=== PATIENT | female | born 1950 | race Caucasian/White ===

== ENCOUNTER 2017-06-07 04:04 | Emergency (ER) | payer BC ==
[~2017-06-07] VITALS: Wt 81.6 kg
[~2017-06-07 04:04] MED LIST: ANAPROX DS550 MG PO; BP MEDICATION; DITROPAN XL10 MG PO; DITROPAN XL5 MG PO; EXFORGE 5 MG PO; EXFORGE PO; FLEXERIL5 MG PO; MEDROL DOSEPAK4 MG PO; MOBIC7.5 MG PO; NORFLEX100 MG PO; PERCOCET 325 MG1 TA7 PO; PREDNICOT20 MG PO; TRAMADOL HCL50 MG PO; VESICARE5 MG PO; VICODIN 5/500 505 MG PO
[2017-06-07 04:24] LABS: BILIRUBIN NEGATIVE (NEGATIVE); BLOOD 2+ (NEGATIVE); CLARITY SL CLOUDY (CLEAR); COLOR YELLOW (YELLOW); GLUCOSE NEGATIVE (NEGATIVE); KETONE NEGATIVE (NEGATIVE); LEUKO ESTERASE 1+ (NEGATIVE); NITRITE NEGATIVE (NEGATIVE); PH 6.5 (5.0-9.0); UROBILINOGEN 0.2 E.U./dl (0.2-1.0)
[2017-06-07 04:42] LABS: BACTERIA 4+; RBC 21-30 rbc/hpf (0-2); WBC 41-50 wbc/hpf (0-5)
[2017-06-07 04:47] LABS: HEMOGLOBIN 11.8 g/dl (12.0-16.0); MEAN CELL VOLUME 92.6 fl (81.0-99.0); MEAN CORPUSCULAR HGB 31.2 pg (27.0-31.0); MEAN CORPUSCULAR HGB CONC 33.7 g/dl (33.0-37.0); MEAN PLATELET VOLUME 9.1 fl (9.6-12.3); PLATELET COUNT AUTOMATED 214 10*3/uL (130-400); RED BLOOD COUNT 3.78 10*6/uL (4.10-5.10); RED CELL DISTRI WIDTH 12.8 % (0-14.5); WHITE BLOOD COUNT 9.6 10*3/uL (4.8-10.8)
[2017-06-07 05:07] LABS: PLATELET SUFFICIENCY NORMAL (NORMAL); TOTAL CELLS COUNTED 100 #CELLS
[2017-06-07 05:08] LABS: ALBUMIN 3.6 gm/dl (3.1-4.5); ALKALINE PHOSPHATASE 91 U/L (45-117); BUN 18 mg/dl (7-24); CHLORIDE 106 mmol/L (98-107); CREATININE 0.91 mg/dL (0.55-1.02); LIPASE 122 U/L (73-393); POTASSIUM 3.8 mmol/L (3.5-5.1); SGOT/AST 27 IU/L (3-35); SGPT/ALT 35 U/L (12-78); SODIUM 137 mmol/L (136-145); TOTAL PROTEIN 7.1 gm/dL (6.4-8.2)
[2017-06-07] MEDS ORDERED: FLOMAX0.4 MG PO (06:44)
[2017-06-07] MEDS ORDERED: AMINOPHYLLIN200 MG PO (06:44)
[2017-06-07] MEDS ORDERED: ZOFRAN ODT4 MG SL (06:44)
[2017-06-07] MEDS ORDERED: NORCO 5-325 TA1 EACH PO (06:44)
== END 2017-06-07 06:51 | disposition home or self-care (01) ==
LOC: ED 04:04
PROVIDERS: Emergency Medicine Emergency Medical Services
DX: N20.1 Calculus of ureter (principal); Z98.51 Tubal ligation status; Z79.899 Other long term (current) drug therapy

== ENCOUNTER → 2017-07-14 | Outpatient (CLI) | payer BC ==
[~2017-07-14] MED LIST changes: +AMINOPHYLLIN200 MG PO; +FLOMAX0.4 MG PO; +NORCO 5-325 TA1 EACH PO; +ZOFRAN ODT4 MG SL
== END | disposition home or self-care (01) ==
LOC: US 13:02
DX: N20.0 Calculus of kidney (principal)

== ENCOUNTER → 2017-09-08 | Outpatient (CLI) | payer BC ==
[2017-09-08 14:50] LABS: BASO # 0.1 10*3/uL (0.0-0.1); BASO % 1.1 % (0.0-1.0); EOS # 0.2 10*3/uL (0.0-0.4); EOS % 3.8 % (1.0-4.0); HEMATOCRIT 38.1 % (37.0-47.0); HEMOGLOBIN 12.7 g/dl (12.0-16.0); LYMPH # 1.1 10*3/uL (1.3-4.4); LYMPH % 20.1 % (27.0-41.0); MEAN CELL VOLUME 92.5 fl (81.0-99.0); MEAN CORPUSCULAR HGB 30.8 pg (27.0-31.0); MEAN CORPUSCULAR HGB CONC 33.3 g/dl (33.0-37.0); MEAN PLATELET VOLUME 9.5 fl (9.6-12.3); MONO # 0.4 10*3/uL (0.1-1.0); MONO % 7.3 % (3.0-9.0); NEUT # 3.7 10*3/uL (2.3-7.9); NEUT % 67.3 % (47.0-73.0); PLATELET COUNT AUTOMATED 239 10*3/uL (130-400); RED BLOOD COUNT 4.12 10*6/uL (4.10-5.10); RED CELL DISTRI WIDTH 13.3 % (0-14.5); WHITE BLOOD COUNT 5.5 10*3/uL (4.8-10.8)
[2017-09-08 15:02] LABS: ACT PARTIAL THROMBO TIME 23.5 SECONDS (20.8-31.5)
[2017-09-08 15:22] LABS: BILIRUBIN 1+ (NEGATIVE); BLOOD NEGATIVE (NEGATIVE); CLARITY SL CLOUDY (CLEAR); COLOR YELLOW (YELLOW); GLUCOSE NEGATIVE (NEGATIVE); KETONE NEGATIVE (NEGATIVE); LEUKO ESTERASE TRACE (NEGATIVE); NITRITE POSITIVE (NEGATIVE); PH 5.5 (5.0-9.0); SPECIFIC GRAVITY >= 1.030 (1.005-1.030); UROBILINOGEN 0.2 E.U./dl (0.2-1.0)
[2017-09-08 15:24] LABS: ALBUMIN 3.9 gm/dl (3.1-4.5); BUN 19 mg/dl (7-24); CHLORIDE 108 mmol/L (98-107); SGOT/AST 25 IU/L (3-35); SGPT/ALT 39 U/L (12-78); SODIUM 141 mmol/L (136-145)
[2017-09-08 15:26] LABS: ALKALINE PHOSPHATASE 101 U/L (45-117); CREATININE 0.86 mg/dL (0.55-1.02); TOTAL PROTEIN 7.5 gm/dL (6.4-8.2)
[2017-09-08 16:00] LABS: BACTERIA 1+; RBC 0-2 rbc/hpf (0-2); WBC 16-20 wbc/hpf (0-5)
== END | disposition home or self-care (01) ==
LOC: LAB 13:52
PROVIDERS: Orthopaedic Surgery
DX: I10 Essential (primary) hypertension (principal); Z79.899 Other long term (current) drug therapy

== ENCOUNTER 2019-04-10 09:57 | Emergency (ER) | payer OTHER ==
[~2019-04-10] VITALS: Ht 167.6 cm; Wt 92.1 kg
[2019-04-10 10:34] LABS: HEMATOCRIT 43.5 % (37.0-47.0); HEMOGLOBIN 14.2 g/dl (12.0-16.0); MEAN CELL VOLUME 96.2 fl (81.0-99.0); MEAN CORPUSCULAR HGB 31.4 pg (27.0-31.0); MEAN CORPUSCULAR HGB CONC 32.6 g/dl (33.0-37.0); MEAN PLATELET VOLUME 9.2 fl (9.6-12.3); PLATELET COUNT AUTOMATED 167 10*3/uL (130-400); RED BLOOD COUNT 4.52 10*6/uL (4.10-5.10); RED CELL DISTRI WIDTH 12.7 % (0-14.5); WHITE BLOOD COUNT 4.5 10*3/uL (4.8-10.8)
[2019-04-10 10:49] LABS: ALBUMIN 3.9 gm/dl (3.1-4.5); CREATININE 1.49 mg/dL (0.55-1.02); POTASSIUM 3.8 mmol/L (3.5-5.1); TOTAL PROTEIN 8.3 gm/dL (6.4-8.2)
[2019-04-10 10:49] LABS: BILIRUBIN NEGATIVE (NEGATIVE); BLOOD 1+ (NEGATIVE); CLARITY SL CLOUDY (CLEAR); COLOR YELLOW (YELLOW); GLUCOSE NEGATIVE (NEGATIVE); KETONE NEGATIVE (NEGATIVE); LEUKO ESTERASE TRACE (NEGATIVE); NITRITE NEGATIVE (NEGATIVE); UROBILINOGEN 0.2 E.U./dl (0.2-1.0)
[2019-04-10 10:53] LABS: PLATELET SUFFICIENCY NORMAL (NORMAL); TOTAL CELLS COUNTED 100 #CELLS
[2019-04-10 10:55] LABS: BACTERIA 2+; WBC 41-50 wbc/hpf (0-5)
[2019-04-10] MEDS ORDERED: ZOFRAN4 MG PO (13:30)
[2019-04-10] MEDS ORDERED: NORCO 5-325 TA1 EACH PO (13:30)
[2019-04-10] MEDS ORDERED: FLOMAX0.4 MG PO (13:30)
[2019-04-10] MEDS ORDERED: CEFUROXIME AXE500 MG PO (13:31)
== END 2019-04-10 13:45 | disposition home or self-care (01) ==
LOC: ED 09:57
PROVIDERS: Nurse Practitioner Family
DX: N20.1 Calculus of ureter (principal); N39.0 Urinary tract infection, site not specified; I10 Essential (primary) hypertension; Z87.442 Personal history of urinary calculi; Z79.2 Long term (current) use of antibiotics; Z79.899 Other long term (current) drug therapy

== ENCOUNTER → 2020-01-31 | Outpatient (CLI) | payer OTHER ==
[~2020-01-31] MED LIST changes: +CEFUROXIME AXE500 MG PO; +ZOFRAN4 MG PO
== END | disposition home or self-care (01) ==
LOC: RAD 13:30
PROVIDERS: ATTEND Nurse Practitioner Primary Care
DX: Z13.820 Encounter for screening for osteoporosis (principal); Z78.0 Asymptomatic menopausal state

== ENCOUNTER → 2021-08-13 | Outpatient (CLI) | payer OTHER ==
[~2021-08-13] MED LIST changes: +CRANBERRY300 MG PO; +ONE DAILY WOME1 EACH PO; +ZYRTEC10 M3 PO
== END | disposition home or self-care (01) ==
LOC: ORTHO 00:27
PROVIDERS: ATTEND Orthopaedic Surgery
DX: M19.041 Primary osteoarthritis, right hand (principal); M85.841 Other specified disorders of bone density and structure, right hand; M85.641 Other cyst of bone, right hand

== ENCOUNTER → 2021-10-02 | Day surgery (SDC) | payer OTHER ==
[2021-10-01 13:56] LABS: BUN 12 mg/dl (7-24); CHLORIDE 109 mmol/L (98-107); CREATININE 0.89 mg/dL (0.55-1.02); POTASSIUM 3.9 mmol/L (3.5-5.1); SODIUM 138 mmol/L (136-145)
[~2021-10-02] VITALS: Ht 167.6 cm; Wt 90.7 kg
[2021-10-02 07:23] VITALS: BP 168/76
[2021-10-02 07:51] VITALS: BP 130/75
[2021-10-02 08:06] VITALS: BP 129/73
[2021-10-02 08:21] VITALS: BP 148/78
== END | disposition home or self-care (01) ==
LOC: SDC 09-28 12:30 → LAB 07:30
PROVIDERS: ATTEND Orthopaedic Surgery
DX: G56.03 Carpal tunnel syndrome, bilateral upper limbs (principal); I10 Essential (primary) hypertension; F41.9 Anxiety disorder, unspecified; Z96.641 Presence of right artificial hip joint; Z90.710 Acquired absence of both cervix and uterus; Z79.899 Other long term (current) drug therapy

== ENCOUNTER → 2022-02-13 | Outpatient (CLI) | payer OTHER | END | disposition home or self-care (01) | LOC: MAMMO 10:51 | PROVIDERS: ATTEND Internal Medicine | DX: Z12.31 Encounter for screening mammogram for malignant neoplasm of breast (principal) ==

== ENCOUNTER → 2022-03-14 | Day surgery (SDC) | payer OTHER ==
[~2022-03-14] VITALS: Ht 167.6 cm; Wt 90.7 kg
[~2022-03-14] MED LIST changes: +VITAMIN C500 M4 PO; +VITAMIN D350 MCG PO
[2022-03-14 06:57] VITALS: BP 140/65
[2022-03-14 07:48] VITALS: BP 141/63
[2022-03-14 08:03] VITALS: BP 141/63
[2022-03-14 08:16] VITALS: BP 141/63; BP 159/84
== END | disposition home or self-care (01) ==
LOC: SDC 02-25 08:00
PROVIDERS: ATTEND Surgery
DX: Z12.11 Encounter for screening for malignant neoplasm of colon (principal); D12.2 Benign neoplasm of ascending colon; K57.30 Diverticulosis of large intestine without perforation or abscess without bleeding; I10 Essential (primary) hypertension; F41.9 Anxiety disorder, unspecified; Z98.890 Other specified postprocedural states